=== PATIENT | female | born 1995 | race Hispanic/Latino ===

== ENCOUNTER 2024-07-29 14:53 | Emergency (ER) | payer OTHER ==
[2024-07-29] MEDS ORDERED: DIPHENHYDRAMINE 50 MG/ML VIAL ONE (16:20)
[2024-07-29] MEDS ORDERED: KETOROLAC 30 MG/ML INJ ONE (16:20)
[2024-07-29] MEDS ORDERED: METOCLOPRAMIDE 10 MG/2mL INJ ONE (16:21)
[2024-07-29] MEDS ORDERED: NA CHLORIDE 0.9% 1,000 ML ONE (16:21)
--- NOTE | 2024-07-29 16:48 | RAD REPORT ---
EXAM: CT brain without contrast HISTORY: Headache COMPARISON: None TECHNIQUE: Multiple contiguous axial images were obtained and a CT of the brain without contrast.. Sagittal and coronal reconstruction performed. Automated exposure control, adjustment of the mA and/or kV according to patient size, and/or iterative reconstruction. Unless otherwise specified, incidental f indings do not require dedicated imaging follow-u FINDINGS: An intracranial bleed is not seen Ventricles are normal caliber No extra-axial fluid collection noted No significant hypodensity within the brain No fluid within the visualized sinuses or mastoids noted. IMPRESSION: No acute intracranial abnormality noted. If the patient's symptoms persist MRI of the brain would be recommended.
--- NOTE | 2024-07-29 17:05 | EDPHYS ---
Physician Documentation [facility] Name: rEick Golden Age: 29 yrs Sex: Female : 1995 Arrival Date: 07/29/2024 Time: 14:53 Bed 12 Private MD: ED Physician Harmeet Hanson HPI: 07/29 16:25 This 29 yrs old Female presents to ER via Ambulatory with complaints of Head sb4 Injury Without LOC-Adult - 07/27/24, Headache. 16:25 Patient states that she went on a carnival ride 2 days ago and hit her head on the back sb4 of the seat. States that ever since then, she has had a, been sleeping a lot, and been dizzy. States that she is taken Advil without significant relief in symptoms. Additionally, she states that her trazodone was recently doubled. Denies any nausea, vomiting, photophobia, neck stiffness, fever, chills, double vision. 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 - Infectious Disease History:: Denies. - Social history:: Smoking status: Patient denies any tobacco usage or history of. ROS: 16:25 Constitutional: Negative for fever, chills, and weight loss, sb4 16:25 Neuro: Positive for dizziness, headache, 16:25 All other systems are negative, Exam: 16:25 Constitutional: This is a well developed, well nourished patient who is awake, alert, sb4 and in no acute distress. Head/Face: Normocephalic, atraumatic. Eyes: Extra-ocular motions intact. Periorbital areas with no swelling, redness, or edema. ENT: Mucous membranes moist. Cardiovascular: Regular rate and rhythm with a normal S1 and S2. Respiratory: No increased work of breathing, no retractions or nasal flaring. Skin: Warm, dry with normal turgor. Normal color with no rashes, no lesions, and no evidence of cellulitis. Neuro: Awake and alert, GCS 15, oriented to person, place, time, and situation. Motor strength 5/5 in all extremities. Sensory grossly intact. Vital Signs: 15:05 BP 120 / 84; Pulse 66; Resp 16; Temp 97.5; Pulse Ox 100% on R/A; Weight 70.31 kg; iw Height 5 ft. 0 in. ; Pain 4/10; 15:05 Body Mass Index 30.27 (70.31 kg, 152.4 cm) iw 15:05 Pain Scale: Adult iw [place] Coma Score: 17:04 Eye Response: spontaneous(4). Motor Response: obeys commands(6). Verbal Response: sb4 oriented(5). Total: 15. MDM: 15:08 Medical Screening Exam initiated sb4 17:04 Data reviewed: vital signs, nurses notes, radiologic studies, and as a result, I will sb4 discharge patient. Counseling: I had a detailed discussion with the patient and/or guardian regarding the historical points, exam findings, and any diagnostic results supporting the discharge/admit diagnosis, radiology results, to return to the emergency department if symptoms worsen or persist or if there are any questions or concerns that arise at home. 07/29 15:22 Order name: Head Brain Wo Cont CT; Complete Time: 16:50 sb4 07/29 15:22 Order name: IV Start; Complete Time: 15:56 sb4 Administered Medications: 16:20 Drug: NS 0.9% IV 1000 ml IV at 1 bolus Per protocol; to be given as a bolus over 60 iw minutes Route: IV; Rate: 1 bolus; Site: left antecubital; 17:20 Follow up: IV Status: Completed infusion iw 16:20 Drug: Ketorolac IVP 15 mg IVP once Route: IVP; Site: left antecubital; iw 17:00 Follow up: Response: No adverse reaction; Pain is decreased iw 16:20 Drug: metoCLOPramide IVP 10 mg IVP once; over 1 to 2 minutes Route: IVP; Site: left iw antecubital; 17:00 Follow up: Response: No adverse reaction; Pain is decreased iw 16:20 Drug: diphenhydrAMINE IVP 25 mg IVP once Route: IVP; Site: left antecubital; iw 17:00 Follow up: Response: No adverse reaction iw Disposition Summary: 07/29/24 17:04 Discharge Ordered Notes: Location: Home sb4 Problem: new sb4 Symptoms: have improved sb4 Condition: Stable sb4 Diagnosis - Postconcussional syndrome sb4 Followup: sb4 - With: Emergency Department - When: As needed - Reason: Worsening of condition Discharge Instructions: - Discharge Summary Sheet sb4 - Post-Concussion Syndrome, [id number] sb4 Forms: - Patient Portal Instructions sb4 - Leadership Thank You Letter sb4 Signatures: Dispatcher [employer] Meg Sutherland, RN RN Bisi Moreira PAEnrrique FOLEY sb4
--- NOTE | 2024-07-29 17:05 | ER ---
Nurse's Notes [facility] Name: Erick Golden Age: 29 yrs Sex: Female : 1995 Arrival Date: 07/29/2024 Time: 14:53 Bed 12 Private MD: Diagnosis: Postconcussional syndrome Presentation: 07/29 15:04 Chief complaint: Patient states: on night i hit my head on a ride at the fair, iw I heard a loud noise and felt dizzy at the time, now I still have a headache in the front and back of my head. 15:04 Acuity: KYLE 4 iw 15:05 Coronavirus screen: At this time, the client does not indicate any symptoms associated iw with coronavirus-19. Ebola Screen: No symptoms or risks identified at this time. 15:05 Method Of Arrival: Ambulatory iw 15:21 Initial Sepsis Screen: Does the patient meet any 2 criteria? No. Patient's initial iw sepsis screen is negative. Does the patient have a suspected source of infection? No. Patient's initial sepsis screen is negative. Risk Assessment: Do you want to hurt yourself or someone else? Patient reports no desire to harm self or others. Onset of symptoms was July 26, 2024. 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 - Infectious Disease History:: Denies. - Social history:: Smoking status: Patient denies any tobacco usage or history of. Screenin:22 [facility] ED Fall Risk Assessment (Adult) History of falling in the last 3 months, iw including since admission No falls in past 3 months (0 pts) Confusion or Disorientation No (0 pts) Intoxicated or Sedated No (0 pts) Impaired Gait No (0 pts) Mobility Assist Device Used No (0 pt) Altered Elimination No (0 pt) Score/Fall Risk Level 0 - 2 = Low Risk Oriented to surroundings, Maintained a safe environment. Abuse screen: Denies threats or abuse. Denies injuries from another. Nutritional screening: No deficits noted. Tuberculosis screening: No symptoms or risk factors identified. Assessment: 15:21 General: Appears in no apparent distress. Behavior is calm, cooperative. Pain: iw Complains of pain in top of head, forehead, left parietal area and right parietal area Pain does not radiate. Neuro: Level of Consciousness is awake, alert, obeys commands, Oriented to person, place, time, situation, Moves all extremities. Full function. Neuro: Reports dizziness, headache. Cardiovascular: Patient's skin is warm and dry. Respiratory: Respiratory effort is even, unlabored, Respiratory pattern is regular, symmetrical. Derm: Skin is intact, is healthy with good turgor. Musculoskeletal: Range of motion: intact in all extremities. 17:00 Reassessment: Patient appears in no apparent distress at this time. Patient and/or iw family updated on plan of care and expected duration. Pain level reassessed. Patient is alert, oriented x 3, equal unlabored respirations, skin warm/dry/pink. Patient states feeling better. Patient states symptoms have improved. Vital Signs: 15:05 BP 120 / 84; Pulse 66; Resp 16; Temp 97.5; Pulse Ox 100% on R/A; Weight 70.31 kg; iw Height 5 ft. 0 in. ; Pain 4/10; 15:05 Body Mass Index 30.27 (70.31 kg, 152.4 cm) iw 15:05 Pain Scale: Adult iw [place] Coma Score: 17:04 Eye Response: spontaneous(4). Motor Response: obeys commands(6). Verbal Response: sb4 oriented(5). Total: 15. ED Course: 14:55 Patient arrived in ED. im 14:58 Bisi Santos PA-C is PHCP. sb4 14:58 Harmeet Hanson MD is Attending Physician. sb4 15:05 Triage completed. iw 15:06 Meg Patterson, RN is Primary Nurse. iw 15:06 Arm band placed on. iw 16:12 Head Brain Wo Cont CT In Process Unspecified. EDMS 17:22 No provider procedures requiring assistance completed. IV discontinued, intact, iw bleeding controlled, No redness/swelling at site. Pressure dressing applied. Administered Medications: 16:20 Drug: NS 0.9% IV 1000 ml IV at 1 bolus Per protocol; to be given as a bolus over 60 iw minutes Route: IV; Rate: 1 bolus; Site: left antecubital; 17:20 Follow up: IV Status: Completed infusion iw 16:20 Drug: Ketorolac IVP 15 mg IVP once Route: IVP; Site: left antecubital; iw 17:00 Follow up: Response: No adverse reaction; Pain is decreased iw 16:20 Drug: metoCLOPramide IVP 10 mg IVP once; over 1 to 2 minutes Route: IVP; Site: left iw antecubital; 17:00 Follow up: Response: No adverse reaction; Pain is decreased iw 16:20 Drug: diphenhydrAMINE IVP 25 mg IVP once Route: IVP; Site: left antecubital; iw 17:00 Follow up: Response: No adverse reaction iw Medication: 15:23 VIS not applicable for this client. iw Outcome: 17:04 Discharge ordered by MD. monte 17:22 Discharged to home ambulatory, iw 17:22 Condition: good 17:22 Discharge instructions given to patient, Instructed on discharge instructions, follow up and referral plans. Demonstrated understanding of instructions, follow-up care, 17:23 Patient left the ED. iw Signatures: Dispatcher [employer] Meg Sutherland RN RN iw Bisi Santos PA-C PAAylin Mccallum Corrections: (The following items were deleted from the chart) 15:23 15:05 BP 120 / 84; Pulse 66bpm; Resp 16bpm; Pulse Ox 100% RA; 70.31 kg; Height 5 ft. 0 iw in.; BMI: 30.2; Pain 4/10, Adult; iw
[2024-07-29 20:39] VITALS: BP 120/84; TEMP 97.5; O2SAT 100
== END 2024-07-29 17:23 | disposition home or self-care (01) ==
LOC: ER 14:53
DX: R51.9 Headache, unspecified (principal); F07.81 Postconcussional syndrome
CPT/HCPCS: 96361; 70450; 96375; 96374; 99284; J2765; J1200; J7030

== ENCOUNTER 2024-09-06 06:27 | Emergency (ER) | payer OTHER ==
[2024-09-06] MEDS ORDERED: NA CHLORIDE 0.9% 1,000 ML ONE (07:16)
[2024-09-06] MEDS ORDERED: FAMOTIDINE 20 MG/2 ML VIAL IV ONE (07:16)
[2024-09-06] MEDS ORDERED: ONDANSETRON 4 MG/2 ML VIAL ONE (07:16)
[2024-09-06 07:46] LABS: Absolute Lymphocytes (CBC) 1.5 K/uL (0.7-4.9); Absolute Monocytes 0.5 K/uL (0.1-1.3); Absolute Neutrophil 4.8 K/uL (1.8-8.0); Basophils % 0.7 % (0-1.3); Eosinophils % 0.6 % (0-4.4); Hematocrit 38.7 % (36.0-45.0); Lymphocytes % 22.2 % (15.3-44.8); MCH 28.8 pg (27.0-35.0); MCHC 33.6 g/dL (32.0-36.0); MCV 85.8 fL (80-100); MPV 8.4 fL (7.6-11.3); Monocytes % 6.9 % (3.3-12.3); Neutrophils % 69.6 % (41.7-73.7); Nucleated Red Blood Cells % 0.2 % (0-0); Platelets 354 thou/uL (152-406); RBC Red Blood Cell Count 4.51 M/uL (3.86-4.86); Red Cell Distribution Width 13.6 % (12.1-15.2)
[2024-09-06 08:03] LABS: Albumin 3.4 g/dL (3.4-5.0); Albumin/Globulin Ratio 0.7 (1.1-1.8); Anion Gap 6.6 mEq/L (5.0-15.0); Bilirubin Total 0.4 mg/dL (0.2-1.0); Globulin 4.8 g/dL (2.3-3.5); Potassium 3.6 mEq/L (3.5-5.1); Protein, Total 8.2 g/dL (6.4-8.2)
--- NOTE | 2024-09-06 08:22 | RAD REPORT ---
EXAMINATION: US Abdomen Exam Limited CLINICAL HISTORY: [facility] MAIN Y ABD PAIN Bed Name: 13 COMPARISON: None. TECHNIQUE: Limited upper abdominal grayscale and color flow sonographic images. FINDINGS: Gallbladder: Normal. No gallstones visualized. There may be minimal sludge near the gallbladder neck. No abnormal wall thickening or pericholecystic fluid. Bile ducts: No intrahepatic or extrahepatic biliary dilatation. Common bile duct measures 2 mm. Liver: Visualized portions of the liver demonstrate normal echogenicity with no suspicious findings. Fluid: No ascites. IMPRESSION: Possible minimal biliary sludge near the gallbladder neck. No other abnormalities on right upper quad rant ultrasound.
[2024-09-06 08:30] LABS: Specific Gravity < 1.005 (1.005-1.030); Sqamous Epithelial <5 /HPF (None Seen); Urine Bacteria None Seen /HPF (<20); Urine Bilirubin NEGATIVE (Negative); Urine Blood Negative (Negative); Urine Clarity Turbid (Clear); Urine Color Colorless (Yellow); Urine Culture Reflex Order NOT NEEDED; Urine Glucose NEGATIVE (Negative); Urine Ketones NEGATIVE (Negative); Urine Microscopic Reflex YN ORDER UMIC; Urine Nitrite NEGATIVE (Negative); Urine Protein NEGATIVE (Negative); Urine RBC <5 /HPF (None Seen); Urine Urobilinogen Normal (Normal); Urine WBC <5 /HPF (<5); Urine pH 6.5 (5.0-7.0)
[2024-09-06 08:31] LABS: Specific Gravity < 1.005 (1.005-1.030)
[2024-09-06 08:41] LABS: Blood Morphology Comment NOT SEEN (NOT SEEN); Differential Total Cells Count 100; Eosinophils 1 % (0-3); Lymphocytes 18 % (15-42); Monocytes 10 % (0-10); Platelet Estimate ADEQ; Segmented Neutrophils 71 % (40-80)
--- NOTE | 2024-09-06 08:52 | RAD REPORT ---
EXAMINATION: CT Abdomen Pelvis W Contrast CLINICAL INDICATION: Female, 29 years old. ABD PAIN TECHNIQUE: CT abdomen and pelvis was performed, after the administration of IV contrast, as per [facility] protocol. Axial, sagittal and coronal reconstructions were obtained. One or more of the following dose reduction techniques were used: Automated exposure control, adjustment of the mA and k V according to patient size, and iterative reconstruction. Unless otherwise specified, incidental findings do not require dedicated imaging follow-up. COMPARISON: 09/06/2024 FINDINGS: LOWER CHEST: The visualized lung bases are clear. LIVER: Normal in size and contour. No focal lesion. BILIARY SYSTEM: No suspicious abnormalities. SPLEEN: Normal size. No focal lesion. PANCREAS: No mass, ductal dilation, or marty-pancreatic fluid. ADRENALS: Normal; no mass. KIDNEYS: Normal size and contour. No hydronephrosis. URINARY BLADDER: Unremarkable. GASTROINTESTINAL TRACT: No evidence of free air, significant intra-abdominal free fluid, bowel obstru ction or abscess. APPENDIX: Normal appendix. LYMPH NODES: No lymphadenopathy. MUSCULOSKELETAL: No acute or suspicious osseous abnormality. ADDITIONAL FINDINGS: None. IMPRESSION: No acute or concerning abnormalities seen in the abdomen or pelvis.
--- NOTE | 2024-09-06 09:10 | EDPHYS ---
Physician Documentation [facility] Name: Erick Golden Age: 29 yrs Sex: Female : 1995 Arrival Date: 09/06/2024 Time: 06: Bed 13 Private MD: ED Physician Devin Tinajero HPI: 09/06 07:32 This 29 yrs old Female presents to ER via Ambulatory with complaints of rn Abdominal Pain, Nausea/Vomiting/Diarrhea. 07:32 The patient presents to the emergency department with nausea, vomiting, diarrhea, rn abdominal pain. Onset: The symptoms/episode began/occurred 2 day(s) ago. Possible causes: unknown. The symptoms are aggravated by pressure, The symptoms are alleviated by nothing. Severity of symptoms: At their worst the symptoms were moderate in the emergency department the symptoms have improved. The patient has not experienced similar symptoms in the past. Patient reports 2 days of upper abdominal pain associated with nausea/vomiting/diarrhea. Negative for fever but positive for chills. No trauma. No blood in stool. No known sick contacts.. Historical: - Allergies: 06:55 No Known Allergies; ha1 - Home Meds: 06:55 trazodone 100 mg Oral tablet every day at bedtime [Active]; ha1 - PMHx: 06:55 insomnia; ha1 - Immunization history:: Adult Immunizations up to date. - Infectious Disease History:: Denies. - Social history:: Smoking status: Patient denies any tobacco usage or history of. - Family history:: not pertinent. - Hospitalizations: : No recent hospitalization is reported. ROS: 07:32 Constitutional: Negative for fever, chills, and weight loss, Cardiovascular: Negative rn for chest pain, palpitations, and edema, Respiratory: Negative for shortness of breath, cough, wheezing, and pleuritic chest pain, Abdomen/GI: Positive for abdominal pain with nausea/vomiting/diarrhea Back: Negative for injury and pain, MS/Extremity: Negative for injury and deformity, Skin: Negative for injury, rash, and discoloration, Neuro: Negative for headache, weakness, numbness, tingling, and seizure, Exam: 07:32 Constitutional: This is a well developed, well nourished patient who is awake, alert, rn and in no acute distress. Head/Face: Normocephalic, atraumatic. Cardiovascular: Regular rate and rhythm. No pulse deficits. Respiratory: No increased work of breathing, no retractions or nasal flaring. Abdomen/GI: Patient with epigastric and right upper quadrant tenderness. No rebound or guarding. Negative Bah MS/ Extremity: Pulses equal, no cyanosis. Neuro: Awake and alert, GCS 15 Vital Signs: 06:42 BP 105 / 85; Pulse 73; Resp 18 S; Temp 97.2(T); Pulse Ox 100% on R/A; Weight 70.31 kg; ha1 Height 5 ft. 3 in. ; Pain 3/10; 09:20 BP 110 / 79; Pulse 74; Resp 17; Pulse Ox 99% on R/A; rs5 06:42 Body Mass Index 27.46 (70.31 kg, 160.02 cm) ha1 06:42 Pain Scale: Adult ha1 MDM: 06:56 Medical Screening Exam initiated rn 09:06 Differential diagnosis: Nonspecific abd pain, gastritis, cholecystitis, pancreatitis, rn viral gastroenteritis, gastroenteritis. Data reviewed: vital signs, nurses notes, lab test result(s), radiologic studies, CT scan, ultrasound, and as a result, I will discharge patient. Counseling: I had a detailed discussion with the patient and/or guardian regarding the historical points, exam findings, and any diagnostic results supporting the discharge/admit diagnosis, lab results, radiology results, the need for outpatient follow up, to return to the emergency department if symptoms worsen or persist or if there are any questions or concerns that arise at home. Special discussion: Based on the patient's Hx, exam, and Dx evaluation, there is no indication for emergent surgery or inpatient Tx. It is understood by the patient/guardian that if the Sx's persist or worsen they need to return immediately for re-evaluation. I discussed with the patient/guardian in detail that at this point there is no indication for admission to the hospital. It is understood, however, that if the symptoms persist or worsen the patient needs to return immediately for re-evaluation. Based on the history and exam findings, there is no indication for further emergent testing or inpatient evaluation. I discussed with the patient/guardian the need to see the hide and skin fleshing machine operator for further evaluation of the symptoms. I discussed with the patient/guardian the need to see the general surgeon for further evaluation of the symptoms. ED course: No acute findings and workup. Patient does have mild amount of sludge but no evidence of cholecystitis or CBD dilatation. LFTs normal. Normal WBC. Patient reports more diarrhea than vomiting, might have enteritis or colitis. Will discharge home with antibiotics and nausea medication with return precautions and GI/surgery follow-up.. 09/06 07:11 Order name: CBC with Diff; Complete Time: 09:01 rn 09/06 07:11 Order name: CMP; Complete Time: 09: rn 09/06 07:11 Order name: Lipase; Complete Time: 09: rn 09/06 07:11 Order name: Test, Urine; Complete Time: 09: rn 09/06 07:11 Order name: Urinalysis w/ reflexes; Complete Time: 09: rn 09/06 07:11 Order name: Flu; Complete Time: 09: rn 09/06 07:51 Order name: Manual Differential; Complete Time: 09:01 EDMS 09/06 07:11 Order name: CT Abd/Pelvis - IV Contrast Only; Complete Time: 09: rn 09/06 07:11 Order name: US Abdomen Limited; Complete Time: 09: rn 09/06 07:11 Order name: IV Saline Lock; Complete Time: 07:46 rn 09/06 07:11 Order name: Labs collected and sent; Complete Time: 07:46 rn Administered Medications: 07:15 Drug: Famotidine IVP 20 mg IVP once; dilute with 10 mL 0.9% NaCl; give over 2 minutes rs5 Route: IVP; Site: right antecubital; 07:30 Follow up: Response: No adverse reaction rs5 07:15 Drug: Ondansetron IVP 4 mg IVP once; over 2 minutes Route: IVP; Site: right antecubital;rs5 07:30 Follow up: Response: No adverse reaction; Nausea is decreased rs5 07:15 Drug: NS 0.9% IV 1000 ml IV at 1 bolus Per protocol; to be given as a bolus over 60 rs5 minutes Route: IV; Rate: 1 bolus; Site: right antecubital; 08:20 Follow up: Response: No adverse reaction; IV Status: Completed infusion; IV Intake: rs5 1000ml Disposition Summary: 09/06/24 09:09 Discharge Ordered Notes: Location: Home rn Problem: new rn Symptoms: have improved rn Condition: Stable rn Diagnosis - Abdominal pain, unspecified rn - Nausea with vomiting, unspecified rn Followup: rn - With: Private Physician - When: As needed - Reason: Recheck today's complaints, Re-evaluation by your physician Discharge Instructions: - Discharge Summary Sheet rn - Abdominal Pain, Adult rn - Nausea and Vomiting, Adult rn Forms: - Medication Reconciliation Form rn - Antibiotic varnish supervisor - Prescription Opioid Use rn - Patient Portal Instructions rn - Leadership Thank You Letter rn - Work release form rs5 Prescriptions: - ondansetron 4 mg Oral Tablet,disintegrating - take 1 tablet ORAL route every 8 hours As needed; 12 tablet; Refills: 0, rn Product Selection Permitted - Augmentin 875-125 mg Oral Tablet - take 1 tablet ORAL route every 12 hours for 10 days; 20 tablet; Refills: 0, rn Product Selection Permitted - Tramadol 50 mg Oral Tablet - take 1 tablet ORAL route every 8 hours as needed; 12 tablet; Refills: 0, rn Product Selection Permitted Signatures: Dispatcher [employer] EDDevin Richardson MD MD rn Ayala, Heidy, RN RN 1 Cornelio Crocker RN RN rs5
--- NOTE | 2024-09-06 09:10 | ER ---
Nurse's Notes [facility] Name: Erick Golden Age: 29 yrs Sex: Female : 1995 Arrival Date: 09/06/2024 Time: 06:27 Bed 13 Private MD: Diagnosis: Abdominal pain, unspecified;Nausea with vomiting, unspecified Presentation: 09/06 06:42 Chief complaint: Patient states: MID EPIGASTRIC PAIN, NAUSEA, VOMITING, AND DIARRHEA. ha1 06:42 Coronavirus screen: Vaccine status: Patient reports being unvaccinated. Ebola Screen: ha1 No symptoms or risks identified at this time. Initial Sepsis Screen: Does the patient meet any 2 criteria? No. Patient's initial sepsis screen is negative. Does the patient have a suspected source of infection? No. Patient's initial sepsis screen is negative. Risk Assessment: Do you want to hurt yourself or someone else? Patient reports no desire to harm self or others. Onset of symptoms was September 06, 2024. 06:42 Method Of Arrival: Ambulatory ha1 06:42 Acuity: KYLE 3 ha1 Triage Assessment: 06:42 General: Appears uncomfortable, Behavior is calm, cooperative. Pain: Complains of pain ha1 in epigastric area Pain does not radiate. Pain currently is 3 out of 10 on a pain scale. Quality of pain is described as sharp, Pain began 2-3 days ago. Neuro: Level of Consciousness is awake, alert, obeys commands, Oriented to person, place, time, situation. Cardiovascular: Patient's skin is warm and dry. Respiratory: Airway is patent Respiratory effort is even, unlabored, Respiratory pattern is regular, symmetrical. GI: Abdomen is round non-distended, Reports upper abdominal pain, diarrhea, nausea, vomiting. Historical: - Allergies: 06:55 No Known Allergies; ha1 - Home Meds: 06:55 trazodone 100 mg Oral tablet every day at bedtime [Active]; ha1 - PMHx: 06:55 insomnia; ha1 - Immunization history:: Adult Immunizations up to date. - Infectious Disease History:: Denies. - Social history:: Smoking status: Patient denies any tobacco usage or history of. - Family history:: not pertinent. - Hospitalizations: : No recent hospitalization is reported. Screenin:00 [facility] ED Fall Risk Assessment (Adult) History of falling in the last 3 months, rs5 including since admission No falls in past 3 months (0 pts) Confusion or Disorientation No (0 pts) Intoxicated or Sedated No (0 pts) Impaired Gait No (0 pts) Mobility Assist Device Used No (0 pt) Altered Elimination No (0 pt) Score/Fall Risk Level 0 - 2 = Low Risk Oriented to surroundings, Maintained a safe environment. Abuse screen: Denies threats or abuse. Nutritional screening: No deficits noted. Tuberculosis screening: No symptoms or risk factors identified. Assessment: 06:45 General: Appears in no apparent distress. uncomfortable, Behavior is calm, cooperative. rs5 Pain: Complains of pain in epigastric area Pain currently is 5 out of 10 on a pain scale. Quality of pain is described as aching, Is continuous. Neuro: Level of Consciousness is awake, alert, obeys commands, Oriented to person, place, time, situation. Cardiovascular: Patient's skin is warm and dry. Respiratory: Airway is patent Respiratory effort is even, unlabored, Respiratory pattern is regular, symmetrical. GI: Abdomen is round non-distended, Bowel sounds present X 4 quads. Abd is soft and non tender X 4 quads. : No signs and/or symptoms were reported regarding the genitourinary system. 06:45 EENT: No signs and/or symptoms were reported regarding the EENT system. Derm: Skin is rs5 intact, Skin is pink, warm \T\ dry. Musculoskeletal: Range of motion: intact in all extremities. 07:50 Reassessment: Patient and/or family updated on plan of care and expected duration. Pain rs5 level reassessed. Patient is alert, oriented x 3, equal unlabored respirations, skin warm/dry/pink. 08:43 Reassessment: Patient and/or family updated on plan of care and expected duration. Pain rs5 level reassessed. Patient is alert, oriented x 3, equal unlabored respirations, skin warm/dry/pink. 09:20 Reassessment: Patient and/or family updated on plan of care and expected duration. Pain rs5 level reassessed. Patient is alert, oriented x 3, equal unlabored respirations, skin warm/dry/pink. Vital Signs: 06:42 BP 105 / 85; Pulse 73; Resp 18 S; Temp 97.2(T); Pulse Ox 100% on R/A; Weight 70.31 kg; ha1 Height 5 ft. 3 in. ; Pain 3/10; 09:20 BP 110 / 79; Pulse 74; Resp 17; Pulse Ox 99% on R/A; rs5 06:42 Body Mass Index 27.46 (70.31 kg, 160.02 cm) ha1 06:42 Pain Scale: Adult ha1 ED Course: 06:31 Patient arrived in ED. gm2 06:55 Triage completed. ha1 06:56 Devin Tinajero MD is Attending Physician. rn 07:00 Patient has correct armband on for positive identification. Placed in gown. Bed in low rs5 position. Call light in reach. Side rails up X2. 07:00 No provider procedures requiring assistance completed. rs5 07:03 Arm band placed on Patient placed in an exam room, on a stretcher. ll1 07:05 Cornelio Crocker, ZACHERY is Primary Nurse. rs5 07:13 Inserted saline lock: 20 gauge in right antecubital area, using aseptic technique. rs5 07:34 US Abdomen Limited In Process Unspecified. EDMS 08:42 CT Abd/Pelvis - IV Contrast Only In Process Unspecified. EDMS 09:30 IV discontinued, intact, bleeding controlled, No redness/swelling at site. Pressure rs5 dressing applied. Administered Medications: 07:15 Drug: Famotidine IVP 20 mg IVP once; dilute with 10 mL 0.9% NaCl; give over 2 minutes rs5 Route: IVP; Site: right antecubital; 07:30 Follow up: Response: No adverse reaction rs5 07:15 Drug: Ondansetron IVP 4 mg IVP once; over 2 minutes Route: IVP; Site: right antecubital;rs5 07:30 Follow up: Response: No adverse reaction; Nausea is decreased rs5 07:15 Drug: NS 0.9% IV 1000 ml IV at 1 bolus Per protocol; to be given as a bolus over 60 rs5 minutes Route: IV; Rate: 1 bolus; Site: right antecubital; 08:20 Follow up: Response: No adverse reaction; IV Status: Completed infusion; IV Intake: rs5 1000ml Medication: 08:44 VIS not applicable for this client. rs5 Intake: 08:20 IV: 1000ml; Total: 1000ml. rs5 Outcome: 09:09 Discharge ordered by . rn 09:30 Discharged to home ambulatory, rs5 09:30 Condition: stable rs5 09:30 Discharge instructions given to patient, family, Instructed on discharge instructions, follow up and referral plans. medication usage, Demonstrated understanding of instructions, follow-up care, medications, Prescriptions given X 3, 09:31 Patient left the ED. rs5 Signatures: Dispatcher [employer] EDMS Devin Tinajero MD MD rn Lewis, Lynsay RN RN 1 Zita Lowry RN RN 1 Cornelio Crocker RN RN rs5 Rachel Lang 2 Corrections: (The following items were deleted from the chart) 07:46 07:46 Inserted saline lock: 20 gauge in right antecubital area, using aseptic rs5 technique. rs5 10:53 09:30 Discharge instructions given to patient, family, Instructed on discharge rs5 instructions, follow up and referral plans. medication usage, Demonstrated understanding of instructions, follow-up care, medications, Prescriptions given X 1, rs5
[2024-09-06 11:28] VITALS: BP 105/85; TEMP 97.2; O2SAT 100
== END 2024-09-06 09:31 | disposition home or self-care (01) ==
LOC: ER 06:27
DX: R10.10 Upper abdominal pain, unspecified (principal); R11.2 Nausea with vomiting, unspecified
CPT/HCPCS: 96361; 85025; 81001; 36415; 81025; 83690; 80053; 87804 ×2; 74177; 76705; 96375; 96374; 99284; Q9967; J2405; J7030